=== PATIENT | female | born 1975 | race Two or more races ===

== ENCOUNTER 2022-06-21 18:33 | Emergency (ER) | payer OTHER, SELFPAY ==
--- NOTE | ~2022-06-21 | XR_ITS ---
EXAMINATION: XR LUMBOSACRAL SPINE CLINICAL INFORMATION: Pain COMPARISON: None TECHNIQUE: Three views of the lumbosacral spine. FINDINGS: 5 lumbar type vertebral bodies.. Vertebral body heights are preserved. There is mild disc space narrowing most significant at L5/S1. XR/XR lumbar spine 2-3V IMPRESSION: Mild degenerative changes of the lumbar spine.
[2022-06-21 18:44] VITALS: BP 154/78; PULSE 56; RESP 16; TEMP 36.8; O2SAT 97; BMI 27.4
--- NOTE | 2022-06-21 19:47 | ED_ITS ---
HPI - Female Genitourinary General Chief complaint: Urogenital-Female Stated complaint: back pain Time Seen by Provider: 06/21/22 19:47 Source: patient Mode of arrival: ambulatory Limitations: no limitations History of Present Illness HPI Narrative: This is a 46 years old female presented to the emergency department with chief complaint of lower back pain she is ambulatory to the emergency department denies any radiation of the pain into the lower extremity, denies numbness in weakness to the lower extremity no urine incontinence no fever Pertinent past history: pyelonephritis Onset (ago): day(s) (1) Severity: moderate Severity scale (1-10): 5 Quality of pain: dull Consistency: constant Exacerbating factors: none Relieving factors: none Associated symptoms: denies other symptoms Related Data Previous Rx's Medication Instructions Recorded oxycodone 5 mg capsule 5 mg PO Q8H PRN pain #12 caps 06/21/22 Allergies Allergy/AdvReac Type Severity Reaction Status Date / Time No Known Allergies Allergy Verified 06/21/22 18:44 Review of Systems Constitutional: Constitutional: Reports no additional constitutional complaints Eyes: Eyes: Reports no additional eye complaints Respiratory: Respiratory: Reports no additional respiratory complaints Musculoskeletal: Musculoskeletal: Reports as per HPI [facility] Past Medical History [facility] Narrative: pyelonephritis Social History Social History Advance Directives: No Advance Directives Information Provided: No Physical Exam Vital Signs: Vital Signs: Last Vital Signs Temp 96.3 F L 06/21/22 21:14 Pulse 56 06/21/22 21:14 Resp 16 06/21/22 21:14 BP 162/92 H 06/21/22 21:14 Pulse Ox 95 06/21/22 21:14 O2 Del Method 06/21/22 21:14 BMI result Body Mass Index 27.4 Const: General: cooperative, comfortable, no acute distress, well developed, alert and awake Nutritional Appearance: average body habitus and well nourished Orientation/consciousness: patient oriented x3 Limitations: no limitations HEENT: Head: Yes normal to inspection General nose exam: Normal external nose present Face and sinus: Yes normal facial exam Mouth: Normal oral and palatal mucosa present Throat: Yes posterior oropharynx normal Neck: Neck: Yes normal visual inspection, Yes full ROM and Yes no lymphadenopathy Chest: Chest palpation & inspection: normal inspection of the chest Resp: Effort & Inspection: normal respiratory effort Auscultation: clear to auscultation bilaterally Cardio: Jugular venous distension: no JVD Rate: regular rate Rhythm: regular rhythm GI: Inspection: Yes normal to inspection Palpation (GI): Soft to palpation, not firm and nontender Neuro: General: patient oriented x3 Cranial nerves: Yes CN's II-XII intact bilaterally Gait exam (Neuro): Normal gait present Motor exam (neuro): 5/5 motor strength present throughout Course Reevaluation(s) Reevaluation #1: feels better will d/c home Time: 21:21 Medications Administered Discontinued Medications Generic Name Dose Route Start Last Admin Trade Name Freq PRN Reason Stop Dose Admin Oxycodone HCl 5 mg 06/21/22 20:07 06/21/22 20:13 Oxycodone Hcl Immed Release 5 Mg Tablet PO 06/21/22 20:08 5 mg ONCE ONE Administration Medical Decision Making Medical Decision Making MDM Narrative: Presented with lower back pain differential diagnosis of pyelonephritis/back strain Differential Diagnosis Differential Diagnoses: The differential diagnosis associated with the presentation includes Pyelo/back strain /DJD Admission/Observation Consideration of admission/observation: Escalation of care including admission/observation considered Lab Data MDM Lab Attestation statement: I reviewed the patient's lab results. Labs: Lab Results 06/21/22 Range/Units 19:43 Urine Color Yellow Urine Appearance Clear Urine pH 5.5 (5.0-9.0) Ur Specific [place] 1.025 (1.005-1.025) Urine Protein Negative (Neg-Trace) mg/dL Urine Glucose (UA) Negative (Negative) mg/dL Urine Ketones Negative (Negative) mg/dL Urine Blood Negative (Negative) Urine Nitrite Negative (Negative) Ur Leukocyte Esterase Trace H (Negative) Urine RBC 0-2 (0-2) /HPF Urine WBC 0-5 (0-5) /HPF Ur Squamous Epith Cells 3-5 (0-2) /HPF Urine Bacteria None Seen (None Seen) Hyaline Casts 0-2 (0-2) /LPF Independent Interpretation I performed an independent interpretation of an: Plain X-Ray Interpretation: negative Radiology Impression Radiologist Impression: CLINICAL INFORMATION: Pain COMPARISON: None TECHNIQUE: Three views of the lumbosacral spine. FINDINGS: 5 lumbar type vertebral bodies.. Vertebral body heights are preserved. There is mild disc space narrowing most significant at L5/S1. XR/XR lumbar spine 2-3V IMPRESSION: Mild degenerative changes of the lumbar spine. ? Dictated By: Sachi Garnica MD Signed By: <Electronically signed by Sachi Garnica MD in OV> 06/21/22 2100 Discharge Plan Discharge Clinical Impression: Back pain Patient Disposition: Home, Self-Care Instructions: Acute Low Back Pain (ED) Additional Instructions: follow up with PCP return if worse Prescriptions: New oxycodone 5 mg capsule 5 mg PO Q8H PRN (Reason: pain) Qty: 12 0RF Rx Instructions: Partial Fill upon patient request. Referrals: Physician,Unknown J [Primary Care Provider] - 3 days Stand Alone Forms: Work/School Release Interventions: ED Discharge Assessment Last Done: 06/21/22 21:54 Discharge Date/Time: 06/21/22 21:56
[2022-06-21 20:00] LABS: Appearance Urine Clear; Color Urine Yellow; Glucose Urine UA Negative (Negative); Leukocyte Esterase Urine Trace (Negative); Nitrite Urine Negative (Negative); PH 5.5 (5.0-9.0); Specific Gravity - Urine 1.025 (1.005-1.025); UMIC TRIGGER UACC YES; Urine Blood Negative (Negative); Urine Ketones Negative (Negative); Urine Protein Negative (Neg-Trace)
[2022-06-21] MEDS: oxyCODONE HCl Immed Release 5 MG TABLET PO (20:13)
[2022-06-21 20:16] LABS: Bacteria Urine None Seen (None Seen); Hyaline Casts Urine 0-2 /LPF (0-2); RBC Urine 0-2 /HPF (0-2); WBC Urine 0-5 /HPF (0-5)
[2022-06-21 21:14] VITALS: BP 162/92; PULSE 56; RESP 16; TEMP 35.7; O2SAT 95
== END 2022-06-21 21:56 | disposition home or self-care (01) ==
PROVIDERS: Emergency Provider Emergency Medicine
DX: M54.50 Low back pain, unspecified (principal)
CPT/HCPCS: 72100; 81001; 81003; 99283

== ENCOUNTER 2025-04-09 07:53 | Outpatient (AMB) | payer OTHER, SELFPAY ==
--- OUTSIDE RECORDS SUMMARY | 2023-12-07 07:00 | XMS_ITS ---
Author Organization [facility] [address] Address [address] [place] [address] Care Team Providers Care Multimedia Manager Name Role Phone JAROCHO DE LEON Unavailable CAL CASTANON Unavailable [phone] REASON FOR VISIT Pt presents for Tirzepatide inj 2.5mg, tolerated well. Medications Medication SIG (Take, Route, Frequency, Duration) Notes Start Date End Date Status Phentermine HCl 30 MG Capsule 1 capsule Orally Once a day; Duration: 30 days 12/31/2022 Not-Takin g Saxenda 18 MG/3ML Solution Pen-injector Week 1: 0.6mg daily, week 2: 1.2mg daily, week 3: 1.8mg daily, week 4: 2.4mg daily, week 5: 3mg daily Subcutaneous daily; Duration: 30 days 03/13/2023 Not-Taking Ondansetron HCl 4 MG Tablet 1 tablet as needed for nausea Orally Once a day; Duration: 30 days 11/26/2023 Active Insulin Pen Needle 32G X 6 MM Miscellaneous use daily with saxenda; Duration: 30 days 03/13/2023 Not-Taking Zepbound 2.5 MG/0.5ML Solution Auto-injector inject 2.5mg Subcutaneous once weekly; Duration: 30 days 11/26/2023 Active Albuterol Sulfate 108 (90 Base) MCG/ACT Aerosol Powder Breath Activated 1 puff as needed Inhalation every 4 hrs PRN Active Levothyroxine Sodium 150 MCG Tablet 1 tablet in the morning on an empty stomach Orally Once a day Active Nortriptyline HCl PRN Ac tive Gabapentin 300 MG Capsule 1 capsule Oral ly Once a day PRN Active Encounters Encounter Location Date Provider Diagnosis [facility] [address] [place] [address] 12/07/2023 CAL CASTANON Plan Of Treatment No Information Medications Administered Medication Instructions Date of Administration Dosage Notes Tirzepatide 12/07/2023 2.5 mg Progress Notes * Paulette EPSTEINhDOB:[birth year] (49 yo F)Acc No.[id number]:12/07/2023 Patient: Seema Knox Provider: Eric Castanon MD :1975 A ge:48 Y S ex:Female Date:12/07/2023 Address:[address] [place] [address] Subjective: * Chief Complaints: * P t presents for Tirzepatide inj 2.5mg, tolerated well. * Medications: T akingNortriptyline HCl , Notes to Pharmacist: PRNGabapentin 300 MG Capsule 1 capsule Orally Once a day , Notes to Pharmacist: PRNAlbuterol Sulfate 108 (90 Base) MCG/ACT Aerosol Powder Breath Activated 1 puff as needed Inhalation every 4 hrs , Notes to Pharmacist: PRNLevothyroxine Sodium 150 MCG Tablet 1 tablet in the morning on an empty stomach Orally Once a day Zepbound 2.5 MG/0.5ML Solution Auto-injector inject 2.5mg Subcutaneous once weekly Ondansetron HCl 4 MG Tablet 1 tablet as needed for nausea Orally Once a day Taking Nortriptyline HCl , Notes to Pharmacist: PRNTaking Gabapentin 300 MG Capsule 1 capsule Orally Once a day , Notes to Pharmacist: PRNTaking Albuterol Sulfate 108 (90 Base) MCG/ACT Aerosol Powder Breath Activated 1 puff as needed Inhalation every 4 hrs , Notes to Pharmacist: PRNTaking Levothyroxine Sodium 150 MCG Tablet 1 tablet in the morning on an empty stomach Orally Once a day Taking Zepbound 2.5 MG/0.5ML Solution Auto-injector inject 2.5mg Subcutaneous once weekly Taking Ondansetron HCl 4 MG Tablet 1 tablet as needed for nausea Orally Once a day Not-TakingPhentermine HCl 30 MG Capsule 1 capsule Orally Once a day Saxenda 18 MG/3ML Solution Pen-injector Week 1: 0.6mg daily, week 2: 1.2mg daily, week 3: 1.8mg daily, week 4: 2.4mg daily, week 5: 3mg daily Subcutaneous daily Insulin Pen Needle 32G X 6 MM Miscellaneous use daily with saxenda Not-Taking Phentermine HCl 30 MG Capsule 1 capsule Orally Once a day Not-Taking Saxenda 18 MG/3ML Solution Pen-injector Week 1: 0.6mg daily, week 2: 1.2mg daily, week 3: 1.8mg daily, week 4: 2.4mg daily, week 5: 3mg daily Subcutaneous daily Not-Taking Insulin Pen Needle 32G X 6 MM Miscellaneous use daily with saxenda Plan: * Therapeutic Injections: Tirzepatide : 2.5 mg (Route: Subcutaneous) given by ANAY MOON on subcutaneus * Electronic signature of SAADIA CASTANON MD on 04/09/2025 at 07:55 AM EST Sign off status: Pending * Provider: Eric Castanon MD Date: 0 12/07/2023 Generated for Jose Alejandro anaya/Perez/Kaitlin on: 1 06/09/2024 07:55 AM EST
--- OUTSIDE RECORDS SUMMARY | 2023-12-21 04:45 | XMS_ITS ---
Author Organization [facility] [address] Address [address] [place] [address] Care Team Providers Care Detasseler Name Role Phone JAROCHO DE LEON Unavailable AMALIA DELGADO Unavailable [phone] Medications Medication SIG (Take, Route, Frequency, Duration) Notes Start Date End Date Status Insulin Pen Needle 32G X 6 MM Miscellaneous use daily with saxenda; Duration: 30 days 03/13/2023 Not-Taking Zepbound 2.5 MG/0.5ML Solution Auto-injector inject 2.5mg Subcutaneous once weekly; Duration: 30 days 11/26/2023 Active Levothyroxine Sodium 150 MCG Tablet 1 tablet in the morning on an empty stomach Orally Once a day Active Phentermine HCl 30 MG Capsule 1 capsule [...] a day; Duration: 30 days 11/26/2023 Active Nortriptyline HCl PRN Ac tive Gabapentin 300 MG Capsule 1 capsule Oral ly Once a day PRN Active Albuterol Sulfate 108 (90 Base) MCG/ACT Aerosol Powder Breath Activated 1 puff as needed Inhalation every 4 hrs PRN Active Problems Problem Type SNOMED Code ICD Code Onset Dates Problem Status W/U Status Risk Notes Problem Obesity (544681086) Obesity (BMI 30-39.9) (E66.9) Active confirmed Encounters Encounter Location Date Provider Diagnosis [facility] [address] [place] [address] 12/21/2023 AMALIA DELGADO Body mass index [BMI ] 38.0-38.9, adult Z68.38 ; Obesity (BMI 30-39.9) E66.9 ; Dietary counseling and surveillance Z71.3 and Hyperlipemia, mixed E78.2 Assessments Encounter Date Diagnosis (ICD Code) Assessment Notes Treatment Notes Treatment Clinical Notes Section Notes 12/21/2023 Body mass index [BMI] 38.0-38.9, adult (ICD-10 - Z68.38) ITotal time spent today was 30 minutes of which greater than 50% was spent on coordinating and counseling Patient has been found to be obese with a BMI of (30). Patient has class (1) obesity. We are a board certified obesity and weight management practice Patient has trialed behavioral modification, dietary restrictions and exercise for a minimum of 6 months The most recent [place] [employer]ocrin[employer] and [place] [employer] guidelines recommend patients who have overweight BMI or obesity BMI, who also have metabolic syndrome, prediabetes, HLD, and other comorbidities or at risk of developing type 2 diabetes should aim for a weight loss goal of at least 10% of the baseline body weight Patient counseled regarding effects of GLP/GIP-1 agonists, and other FDA approved wgt loss meds with regards to a multifactorial approach of weight loss as mentioned above and not solely appetite suppression. We have discussed the mechanism of GLP-1's/GIP, dual incretins, appetitite suppressants I think this would be fantastic option for her given her metabolic workup and body composition We have discussed the risks and benefits and side effects including/and not limited to Sarcopenia, intestinal obstruction, constipation, nausea, lethargy, headache Discussed importance of protein consumption for muscle maintenance as well as strength and resistance training ,probiotics, B12 complex biotin , iron and other nutrients, To help avoid telogen effluvium We have discussed the lifelong requirement of nutritional supplementation And adherence to an exercise regimen as well as importance of follow-up We did discuss the neurohormonal changes that are occurring with these medications and Need for long-term Continued usage The patient understands and agrees There is no history of medullary thyroid cancer or multiple endocrine neoplasia There is also no history of cardiovascular disease, hypertension, palpitations, or arrhythmias In the setting of potential stimulant/amphetami ne use such as phentermine We have also discussed risks and benefits, and the use of compounded medications to help offset the national shortages as well as financial implications vs trade name drugs Patient was reassured and welcomed to the practice. We discussed that we stress a hollistic medical approach with emphasis on lifestyle modification. Patient was informed that a healthy lifestyle with exercise and good eating habits can help reduce his risk of medical complications. He is explained that obesity increases his risk of diabetes, cardiovascular disease, or organ damage. We spent a lot of time discussing the relationship between food, exercise, sleep, mental health and obesity. Patient was counseled on the importance EATING local, organic food when possible. Patient was educated on clean 15 and dirty dozen. I provided information about reading books called The Food Rules by Roger Pringle and Eat Fat Get Lean by Dr Yusef Tom. Self education is important in the journey for weight management. Encourage good sleep hygiene Optimize sleep/wake cycles 6-8 hours nightly Keep lights on his stimulus during the day Darkroom and minimize nighttime interruptions Continue melatonin, other sleep aid medications Patient was offered diagnostic testing. We want to measure visceral adiposity, advanced body composition, adverse lipids, fatty acid balance, risk for heart disease and atherosclerosis, markers of inflammation and genetic susceptibility. Patient was counseled on weight management and was advised to lose weight using A. Meal Replacement Products We discussed the lifelong requirement of nutritional supplementation and adherence to an exercise regimen as well as importance of dietary follow-up Patient was educated on the replacement products called optifast. This is a good way of taking fixed amount of calories. It has been shown in studies to be ineffective weight management tool. We also recommend maintaining adequate protein intake and muscle composition, 1.5mg/kg This however has to be coupled with lifestyle intervention as well as laboratory data and EKG monitoring. It is impossible to know how a person will tolerate complete meal replacement. The side effects of meal replacement and weight loss could include syncopal attacks, dizziness, gallstones, potential cholecystectomy, possible heart attack and even . The benefits of meal replacement would be potential weight loss but no guarantees can be made. Meal replacement products are not covered by insurance. Once the patient has bought these products we cannot return them B. Lifestyle management which includes several strategies as below 1. Eat a low carbohydrate good fat good protein diet. Eliminate refined carbohydrates from the diet. Continue blood sugar and sugared beverages. Eat local organic when possible. Cook your own meals. Read food labels. None about healthy snacks. Portion control and food with low glycemic index 2. Exercise regularly. Try to get at least 6000 steps a day. Use a predominant to track activity level. Consider using apps like Socialcam, [employer], lose it, stick as needed for self-monitoring and weight management. Consider group exercises. Consider hiring a personal lines appraiser. Regular exercise is blackman to sustainable health and prevents as a buffer against weight regain 3. Sleep is most important for healing. Tried to sleep at least 8 hours a night. A good quality sleep needs a sleep ritual with ideal room temperature of around 68. It might help to take a shower and have no electronics in the room and sleep in a very dark room without artificial light. Start her sleep routine and get up early in the morning and go to bed on time 4. Make a social connection. Surround yourself with positive people with positive energy. Connect with friends and family. 5. Get into the habit of meditating and mindfulness while doing everything. 6. Go outside and connect with nature. C. Prescription medications Patient was educated on the use of prescription medications for medical weight loss. This is a growing list and includes phentermine, Topamax,Qsymia, contrave, belviq and saxenda. All prescription medications could have side effects including but not limited to kidney stones, seizure disorder cardiac arrhythmias heart attack pancreatitis etc. etc.. Patient was encouraged to read the prescription insert and have coaching with their pharmacist and make an informed decision about taking medication and know that these medications are being prescribed with good intentions and we do not know how a patient would react to her medication. Sudden medications are FDA approved for weight loss and there is also off label use depending on patient's inability to afford medications in an attempt to lose weight D. Behavioral counseling was done to establish a relationship between food and an mood. Patient was provided information about local counseling and psychiatry and Dr Blue at [facility]. We would like to cover regular topics and build on low glycemic eating exercise mindful eating, using yoga and meditation along with deep breathing and connecting with friends and family. E. MASS PAT reviewed, Patient's current medications were reviewed and opinion was given on medication that can cause weight gain and can be substituted F. Patient was assessed for risk with obesity including and not limiting to atherosclerosis heart disease stroke kidney disease, restrictive lung disease, irritable bowel syndrome and overall mortality. Risk of developing prediabetes diabetes and metabolic syndrome was discussed G. Therapeutic plan: We have decided to make therapeutic plan which would include choosing wisely on calories restricting portion getting active, tracking weight, getting good quality sleep and working on time management H. Patient will follow up in (4) weeks for weight management Of note, some information is being carried forward from prior records for informational purposes only and is being cited so that efficiency, safety and quality of the patient's care is not compromised This note was prepared using voice recognition software and direct typing Please excuse inadvertent pouch maker or typing errors, or uncorrected word substitutions Although every attempt has been made by the provider to proofread this document, occasional misspellings and typographical errors may still be present Due to the previous pandemic, and the use of personal protective equipment (PPE) This may decrease voice recognition accuracy Inadvertent pouch maker errors may occur 12/21/2023 Obesity (BMI 30-39.9) (ICD-10 - E66.9) ITotal time spent today was 30 minutes of which greater than 50% was spent on coordinating and counseling Patient has been found to be obese with a BMI of (30). Patient has class (1) obesity. We are a board certified obesity and weight management practice Patient has trialed behavioral modification, dietary restrictions and exercise for a minimum of 6 months The most recent [place] [employer] clinical [employer]ocrinologists and [place] [employer] guidelines recommend patients who have overweight BMI or obesity BMI, who also have metabolic syndrome, prediabetes, HLD, and other comorbidities or at risk of developing type 2 diabetes should aim for a weight loss goal of at least 10% of the baseline body weight Patient counseled regarding effects of GLP/GIP-1 agonists, and other FDA approved wgt loss meds with regards to a multifactorial approach of weight loss as mentioned above and not solely appetite suppression. We have discussed the mechanism of GLP-1's/GIP, dual incretins, appetitite suppressants I think this would be fantastic option for her given her metabolic workup and body composition We have discussed the risks and benefits and side effects including/and not limited to Sarcopenia, intestinal obstruction, constipation, nausea, lethargy, headache Discussed importance of protein consumption for muscle maintenance as well as strength and resistance training ,probiotics, B12 complex biotin , iron and other nutrients, To help avoid telogen effluvium We have discussed the lifelong requirement of nutritional supplementation And adherence to an exercise regimen as well as importance of follow-up We did discuss the neurohormonal changes that are occurring with these medications and Need for long-term Continued usage The patient understands and agrees There is no history of medullary thyroid cancer or multiple endocrine neoplasia There is also no history of cardiovascular disease, hypertension, palpitations, or arrhythmias In the setting of potential stimulant/amphetami ne use such as phentermine We have also discussed risks and benefits, and the use of compounded medications to help offset the national shortages as well as financial implications vs trade name drugs Patient was reassured and welcomed to the practice. We discussed that we stress a hollistic medical approach with emphasis on lifestyle modification. Patient was informed that a healthy lifestyle with exercise and good eating habits can help reduce his risk of medical complications. He is explained that obesity increases his risk of diabetes, cardiovascular disease, or organ damage. We spent a lot of time discussing the relationship between food, exercise, sleep, mental health and obesity. Patient was counseled on the importance EATING local, organic food when possible. Patient was educated on clean 15 and dirty dozen. I provided information about reading books called The Food Rules by Roger Pringle and Eat Fat Get Lean by Dr Yusef Tom. Self education is important in the journey for weight management. Encourage good sleep hygiene Optimize sleep/wake cycles 6-8 hours nightly Keep lights on his stimulus during the day Darkroom and minimize nighttime interruptions Continue melatonin, other sleep aid medications Patient was offered diagnostic testing. We want to measure visceral adiposity, advanced body composition, adverse lipids, fatty acid balance, risk for heart disease and atherosclerosis, markers of inflammation and genetic susceptibility. Patient was counseled on weight management and was advised to lose weight using A. Meal Replacement Products We discussed the lifelong requirement of nutritional supplementation and adherence to an exercise regimen as well as importance of dietary follow-up Patient was educated on the replacement products called optifast. This is a good way of taking fixed amount of calories. It has been shown in studies to be ineffective weight management tool. We also recommend maintaining adequate protein intake and muscle composition, 1.5mg/kg This however has to be coupled with lifestyle intervention as well as laboratory data and EKG monitoring. It is impossible to know how a person will tolerate complete meal replacement. The side effects of meal replacement and weight loss could include syncopal attacks, dizziness, gallstones, potential cholecystectomy, possible heart attack and even . The benefits of meal replacement would be potential weight loss but no guarantees can be made. Meal replacement products are not covered by insurance. Once the patient has bought these products we cannot return them B. Lifestyle management which includes several strategies as below 1. Eat a low carbohydrate good fat good protein diet. Eliminate refined carbohydrates from the diet. Continue blood sugar and sugared beverages. Eat local organic when possible. Cook your own meals. Read food labels. None about healthy snacks. Portion control and food with low glycemic index 2. Exercise regularly. Try to get at least 6000 steps a day. Use a predominant to track activity level. Consider using apps like Socialcam, [employer], lose it, stick as needed for self-monitoring and weight management. Consider group exercises. Consider hiring a personal lines appraiser. Regular exercise is blackman to sustainable health and prevents as a buffer against weight regain 3. Sleep is most important for healing. Tried to sleep at least 8 hours a night. A good quality sleep needs a sleep ritual with ideal room temperature of around 68. It might help to take a shower and have no electronics in the room and sleep in a very dark room without artificial light. Start her sleep routine and get up early in the morning and go to bed on time 4. Make a social connection. Surround yourself with positive people with positive energy. Connect with friends and family. 5. Get into the habit of meditating and mindfulness while doing everything. 6. Go outside and connect with nature. C. Prescription medications Patient was educated on the use of prescription medications for medical weight loss. This is a growing list and includes phentermine, Topamax,Qsymia, contrave, belviq and saxenda. All prescription medications could have side effects including but not limited to kidney stones, seizure disorder cardiac arrhythmias heart attack pancreatitis etc. etc.. Patient was encouraged to read the prescription insert and have coaching with their pharmacist and make an informed decision about taking medication and know that these medications are being prescribed with good intentions and we do not know how a patient would react to her medication. Sudden medications are FDA approved for weight loss and there is also off label use depending on patient's inability to afford medications in an attempt to lose weight D. Behavioral counseling was done to establish a relationship between food and an mood. Patient was provided information about local counseling and psychiatry and Dr Blue at [facility] [employer] [facility] [employer] [facility]. We would like to cover regular topics and build on low glycemic eating exercise mindful eating, using yoga and meditation along with deep breathing and connecting with friends and family. E. MASS PAT reviewed, Patient's current medications were reviewed and opinion was given on medication that can cause weight gain and can be substituted F. Patient was assessed for risk with obesity including and not limiting to atherosclerosis heart disease stroke kidney disease, restrictive lung disease, irritable bowel syndrome and overall mortality. Risk of developing prediabetes diabetes and metabolic syndrome was discussed G. Therapeutic plan: We have decided to make therapeutic plan which would include choosing wisely on calories restricting portion getting active, tracking weight, getting good quality sleep and working on time management H. Patient will follow up in (4) weeks for weight management Of note, some information is being carried forward from prior records for informational purposes only and is being cited so that efficiency, safety and quality of the patient's care is not compromised This note was prepared using voice recognition software and direct typing Please excuse inadvertent pouch maker or typing errors, or uncorrected word substitutions Although every attempt has been made by the provider to proofread this document, occasional misspellings and typographical errors may still be present Due to the previous pandemic, and the use of personal protective equipment (PPE) This may decrease voice recognition accuracy Inadvertent pouch maker errors may occur 12/21/2023 Dietary counseling and surveillance (ICD-10 - Z71.3) ITotal time spent today was 30 minutes of which greater than 50% was spent on coordinating and counseling Patient has been found to be obese with a BMI of (30). Patient has class (1) obesity. We are a board certified obesity and weight management practice Patient has trialed behavioral modification, dietary restrictions and exercise for a minimum of 6 months The most recent [place] [employer]ocrinologists and [place] [employer] guidelines recommend patients who have overweight BMI or obesity BMI, who also have metabolic syndrome, prediabetes, HLD, and other comorbidities or at risk of developing type 2 diabetes should aim for a weight loss goal of at least 10% of the baseline body weight Patient counseled regarding effects of GLP/GIP-1 agonists, and other FDA approved wgt loss meds with regards to a multifactorial approach of weight loss as mentioned above and not solely appetite suppression. We have discussed the mechanism of GLP-1's/GIP, dual incretins, appetitite suppressants I think this would be fantastic option for her given her metabolic workup and body composition We have discussed the risks and benefits and side effects including/and not limited to Sarcopenia, intestinal obstruction, constipation, nausea, lethargy, headache Discussed importance of protein consumption for muscle maintenance as well as strength and resistance training ,probiotics, B12 complex biotin , iron and other nutrients, To help avoid telogen effluvium We have discussed the lifelong requirement of nutritional supplementation And adherence to an exercise regimen as well as importance of follow-up We did discuss the neurohormonal changes that are occurring with these medications and Need for long-term Continued usage The patient understands and agrees There is no history of medullary thyroid cancer or multiple endocrine neoplasia There is also no history of cardiovascular disease, hypertension, palpitations, or arrhythmias In the setting of potential stimulant/amphetami ne use such as phentermine We have also discussed risks and benefits, and the use of compounded medications to help offset the national shortages as well as financial implications vs trade name drugs Patient was reassured and welcomed to the practice. We discussed that we stress a hollistic medical approach with emphasis on lifestyle modification. Patient was informed that a healthy lifestyle with exercise and good eating habits can help reduce his risk of medical complications. He is explained that obesity increases his risk of diabetes, cardiovascular disease, or organ damage. We spent a lot of time discussing the relationship between food, exercise, sleep, mental health and obesity. Patient was counseled on the importance EATING local, organic food when possible. Patient was educated on clean 15 and dirty dozen. I provided information about reading books called The Food Rules by Roger Pringle and Eat Fat Get Lean by Dr Yusef Tom. Self education is important in the journey for weight management. Encourage good sleep hygiene Optimize sleep/wake cycles 6-8 hours nightly Keep lights on his stimulus during the day Darkroom and minimize nighttime interruptions Continue melatonin, other sleep aid medications Patient was offered diagnostic testing. We want to measure visceral adiposity, advanced body composition, adverse lipids, fatty acid balance, risk for heart disease and atherosclerosis, markers of inflammation and genetic susceptibility. Patient was counseled on weight management and was advised to lose weight using A. Meal Replacement Products We discussed the lifelong requirement of nutritional supplementation and adherence to an exercise regimen as well as importance of dietary follow-up Patient was educated on the replacement products called optifast. This is a good way of taking fixed amount of calories. It has been shown in studies to be ineffective weight management tool. We also recommend maintaining adequate protein intake and muscle composition, 1.5mg/kg This however has to be coupled with lifestyle intervention as well as laboratory data and EKG monitoring. It is impossible to know how a person will tolerate complete meal replacement. The side effects of meal replacement and weight loss could include syncopal attacks, dizziness, gallstones, potential cholecystectomy, possible heart attack and even . The benefits of meal replacement would be potential weight loss but no guarantees can be made. Meal replacement products are not covered by insurance. Once the patient has bought these products we cannot return them B. Lifestyle management which includes several strategies as below 1. Eat a low carbohydrate good fat good protein diet. Eliminate refined carbohydrates from the diet. Continue blood sugar and sugared beverages. Eat local organic when possible. Cook your own meals. Read food labels. None about healthy snacks. Portion control and food with low glycemic index 2. Exercise regularly. Try to get at least 6000 steps a day. Use a predominant to track activity level. Consider using apps like Socialcam, myfitnesspal, lose it, stick as needed for self-monitoring and weight management. Consider group exercises. Consider hiring a personal lines appraiser. Regular exercise is blackman to sustainable health and prevents as a buffer against weight regain 3. Sleep is most important for healing. Tried to sleep at least 8 hours a night. A good quality sleep needs a sleep ritual with ideal room temperature of around 68. It might help to take a shower and have no electronics in the room and sleep in a very dark room without artificial light. Start her sleep routine and get up early in the morning and go to bed on time 4. Make a social connection. Surround yourself with positive people with positive energy. Connect with friends and family. 5. Get into the habit of meditating and mindfulness while doing everything. 6. Go outside and connect with nature. C. Prescription medications Patient was educated on the use of prescription medications for medical weight loss. This is a growing list and includes phentermine, Topamax,Qsymia, contrave, belviq and saxenda. All prescription medications could have side effects including but not limited to kidney stones, seizure disorder cardiac arrhythmias heart attack pancreatitis etc. etc.. Patient was encouraged to read the prescription insert and have coaching with their pharmacist and make an informed decision about taking medication and know that these medications are being prescribed with good intentions and we do not know how a patient would react to her medication. Sudden medications are FDA approved for weight loss and there is also off label use depending on patient's inability to afford medications in an attempt to lose weight D. Behavioral counseling was done to establish a relationship between food and an mood. Patient was provided information about local counseling and psychiatry and Dr Blue at [facility]. We would like to cover regular topics and build on low glycemic eating exercise mindful eating, using yoga and meditation along with deep breathing and connecting with friends and family. E. MASS PAT reviewed, Patient's current medications were reviewed and opinion was given on medication that can cause weight gain and can be substituted F. Patient was assessed for risk with obesity including and not limiting to atherosclerosis heart disease stroke kidney disease, restrictive lung disease, irritable bowel syndrome and overall mortality. Risk of developing prediabetes diabetes and metabolic syndrome was discussed G. Therapeutic plan: We have decided to make therapeutic plan which would include choosing wisely on calories restricting portion getting active, tracking weight, getting good quality sleep and working on time management H. Patient will follow up in (4) weeks for weight management Of note, some information is being carried forward from prior records for informational purposes only and is being cited so that efficiency, safety and quality of the patient's care is not compromised This note was prepared using voice recognition software and direct typing Please excuse inadvertent pouch maker or typing errors, or uncorrected word substitutions Although every attempt has been made by the provider to proofread this document, occasional misspellings and typographical errors may still be present Due to the previous pandemic, and the use of personal protective equipment (PPE) This may decrease voice recognition accuracy Inadvertent pouch maker errors may occur 12/21/2023 Hyperlipemia, mixed (ICD-10 - E78.2) ITotal time spent today was 30 minutes of which greater than 50% was spent on coordinating and counseling Patient has been found to be obese with a BMI of (30). Patient has class (1) obesity. We are a board certified obesity and weight management practice Patient has trialed behavioral modification, dietary restrictions and exercise for a minimum of 6 months The most recent [place] [employer] of clinical endocrinologists and [place] [employer] guidelines recommend patients who have overweight BMI or obesity BMI, who also have metabolic syndrome, prediabetes, HLD, and other comorbidities or at risk of developing type 2 diabetes should aim for a weight loss goal of at least 10% of the baseline body weight Patient counseled regarding effects of GLP/GIP-1 agonists, and other FDA approved wgt loss meds with regards to a multifactorial approach of weight loss as mentioned above and not solely appetite suppression. We have discussed the mechanism of GLP-1's/GIP, dual incretins, appetitite suppressants I think this would be fantastic option for her given her metabolic workup and body composition We have discussed the risks and benefits and side effects including/and not limited to Sarcopenia, intestinal obstruction, constipation, nausea, lethargy, headache Discussed importance of protein consumption for muscle maintenance as well as strength and resistance training ,probiotics, B12 complex biotin , iron and other nutrients, To help avoid telogen effluvium We have discussed the lifelong requirement of nutritional supplementation And adherence to an exercise regimen as well as importance of follow-up We did discuss the neurohormonal changes that are occurring with these medications and Need for long-term Continued usage The patient understands and agrees There is no history of medullary thyroid cancer or multiple endocrine neoplasia There is also no history of cardiovascular disease, hypertension, palpitations, or arrhythmias In the setting of potential stimulant/amphetami ne use such as phentermine We have also discussed risks and benefits, and the use of compounded medications to help offset the national shortages as well as financial implications vs trade name drugs Patient was reassured and welcomed to the practice. We discussed that we stress a hollistic medical approach with emphasis on lifestyle modification. Patient was informed that a healthy lifestyle with exercise and good eating habits can help reduce his risk of medical complications. He is explained that obesity increases his risk of diabetes, cardiovascular disease, or organ damage. We spent a lot of time discussing the relationship between food, exercise, sleep, mental health and obesity. Patient was counseled on the importance EATING local, organic food when possible. Patient was educated on clean 15 and dirty dozen. I provided information about reading books called The Food Rules by Roger Pringle and Eat Fat Get Lean by Dr Yusef Tom. Self education is important in the journey for weight management. Encourage good sleep hygiene Optimize sleep/wake cycles 6-8 hours nightly Keep lights on his stimulus during the day Darkroom and minimize nighttime interruptions Continue melatonin, other sleep aid medications Patient was offered diagnostic testing. We want to measure visceral adiposity, advanced body composition, adverse lipids, fatty acid balance, risk for heart disease and atherosclerosis, markers of inflammation and genetic susceptibility. Patient was counseled on weight management and was advised to lose weight using A. Meal Replacement Products We discussed the lifelong requirement of nutritional supplementation and adherence to an exercise regimen as well as importance of dietary follow-up Patient was educated on the replacement products called optifast. This is a good way of taking fixed amount of calories. It has been shown in studies to be ineffective weight management tool. We also recommend maintaining adequate protein intake and muscle composition, 1.5mg/kg This however has to be coupled with lifestyle intervention as well as laboratory data and EKG monitoring. It is impossible to know how a person will tolerate complete meal replacement. The side effects of meal replacement and weight loss could include syncopal attacks, dizziness, gallstones, potential cholecystectomy, possible heart attack and even . The benefits of meal replacement would be potential weight loss but no guarantees can be made. Meal replacement products are not covered by insurance. Once the patient has bought these products we cannot return them B. Lifestyle management which includes several strategies as below 1. Eat a low carbohydrate good fat good protein diet. Eliminate refined carbohydrates from the diet. Continue blood sugar and sugared beverages. Eat local organic when possible. Cook your own meals. Read food labels. None about healthy snacks. Portion control and food with low glycemic index 2. Exercise regularly. Try to get at least 6000 steps a day. Use a predominant to track activity level. Consider using apps like Socialcam, myfitnesspal, lose it, stick as needed for self-monitoring and weight management. Consider group exercises. Consider hiring a personal lines appraiser. Regular exercise is blackman to sustainable health and prevents as a buffer against weight regain 3. Sleep is most important for healing. Tried to sleep at least 8 hours a night. A good quality sleep needs a sleep ritual with ideal room temperature of around 68. It might help to take a shower and have no electronics in the room and sleep in a very dark room without artificial light. Start her sleep routine and get up early in the morning and go to bed on time 4. Make a social connection. Surround yourself with positive people with positive energy. Connect with friends and family. 5. Get into the habit of meditating and mindfulness while doing everything. 6. Go outside and connect with nature. C. Prescription medications Patient was educated on the use of prescription medications for medical weight loss. This is a growing list and includes phentermine, Topamax,Qsymia, contrave, belviq and saxenda. All prescription medications could have side effects including but not limited to kidney stones, seizure disorder cardiac arrhythmias heart attack pancreatitis etc. etc.. Patient was encouraged to read the prescription insert and have coaching with their pharmacist and make an informed decision about taking medication and know that these medications are being prescribed with good intentions and we do not know how a patient would react to her medication. Sudden medications are FDA approved for weight loss and there is also off label use depending on patient's inability to afford medications in an attempt to lose weight D. Behavioral counseling was done to establish a relationship between food and an mood. Patient was provided information about local counseling and psychiatry and Dr Blue at [facility]. We would like to cover regular topics and build on low glycemic eating exercise mindful eating, using yoga and meditation along with deep breathing and connecting with friends and family. E. MASS PAT reviewed, Patient's current medications were reviewed and opinion was given on medication that can cause weight gain and can be substituted F. Patient was assessed for risk with obesity including and not limiting to atherosclerosis heart disease stroke kidney disease, restrictive lung disease, irritable bowel syndrome and overall mortality. Risk of developing prediabetes diabetes and metabolic syndrome was discussed G. Therapeutic plan: We have decided to make therapeutic plan which would include choosing wisely on calories restricting portion getting active, tracking weight, getting good quality sleep and working on time management H. Patient will follow up in (4) weeks for weight management Of note, some information is being carried forward from prior records for informational purposes only and is being cited so that efficiency, safety and quality of the patient's care is not compromised This note was prepared using voice recognition software and direct typing Please excuse inadvertent pouch maker or typing errors, or uncorrected word substitutions Although every attempt has been made by the provider to proofread this document, occasional misspellings and typographical errors may still be present Due to the previous pandemic, and the use of personal protective equipment (PPE) This may decrease voice recognition accuracy Inadvertent pouch maker errors may occur Plan Of Treatment No Information History and Physical Notes * HPI (History of Present Illness) Category Sub-Category Detail Notes Category Not es Constitutional Patient is here today for a weight management f/u visit Patient seen and examined. Full past medical history, social history, family history, allergies and current medications were reviewed and updated. Body composition analysis reviewed today, Including review of body fat, water and skeletal muscle composition Caloric energy expenditure discussed, weight circumference, visceral adiposity we discussed the importance of protein calorie nutrition, maintaning muscle mass, vit b12, biotin, iron while on GLP-1 medications, dual incretins, appetitite suppressants Patient denies any known personal history or family history of medullary thyroid cancer, multiple endocrine neoplasia, intestinal obstruction, pancreatitis or other gastrointestinal issues #Weight Management Needs updated metabolic workup 12/21/2023: Weight lbs, BMI: November 26, 2023, weight 211 pounds, BMI 38 Patient works as Highest weight: lbs Lowest weight: lbs Goal weight: lbs NORA screening/STOP-BANG/[place], * Metabolic workup: 10/2022 Thyroid? No recent screening Diabetes? No recent screening Has not had an echocardiogram recently. Diet: Exercise: Currently steps daily. Non-smoker. ETOH use: #Weight Management 12/21/2023 Examination Category Sub-Category Detail Notes Category Not es General Examination GENERAL APPEARANCE: in no ac [place] distress, well developed, well nourished HEAD: normocephalic, atrau matic EYES: pupils equal, round, reactive to light and accommodation EARS: normal THROAT: clear NECK/THYROID: neck supple, full ra nge of motion, no cervical lymphadenopathy HEART: no murmurs, regular rate and rhythm, S1, S2 normal LUNGS: clear to auscultatio n bilaterally ABDOMEN: normal, bowel sounds present, soft, nontender, nondistended NEUROLOGIC: nonfocal, motor stre ngth normal upper and lower extremities, sensory exam intact SKIN: no suspicious lesion s, warm and dry EXTREMITIES: no clubbing, cyanosi s, or edema ORAL CAVITY: mucosa moist Progress Notes * Philip EPSTEINOB:[birth year] (49 yo F)Acc No.[id number]:12/21/2023 Patient: Seema Knox Provider: Koki DELGADO NP :[id number] A ge:48 Y S ex:Female Date:12/21/2023 Address:[address] [place] [address] Subjective: * Chief Complaints: * HPI: C onstitutional: Patient is here today for a weight management f/u visit Patient seen and examined. Full past medical history, social history, family history, allergies and current medications were reviewed and updated. Body composition analysis reviewed today, Including review of body fat, water and skeletal muscle composition Caloric energy expenditure discussed, weight circumference, visceral adiposity we discussed the importance of protein calorie nutrition, maintaning muscle mass, vit b12, biotin, iron while on GLP-1 medications, dual incretins, appetitite suppressants Patient denies any known personal history or family history of medullary thyroid cancer, multiple endocrine neoplasia, intestinal obstruction, pancreatitis or other gastrointestinal issues #Weight Management Needs updated metabolic workup 12/21/2023: Weight lbs, BMI: November 26, 2023, weight 211 pounds, BMI 38 Patient works as Highest weight: lbs Lowest weight: lbs Goal weight: lbs NORA screening/[facility]/[place], * Metabolic workup: 10/2022 Thyroid? No recent screening Diabetes? No recent screening Has not had an echocardiogram recently. Diet: Exercise: Currently steps daily. Non-smoker. ETOH use: #Weight Management 12/21/2023. * ROS: A ll Other Systems: Review of Systems (ROS) A ll others negative except those mentioned in HPI. * Medications: T akingNortriptyline HCl , Notes [...] 6 MM Miscellaneous use daily with saxenda Objective: * Examination: G eneral Examination: GENERAL APPEARANCE: i n no acute distress, well developed, well nourished. HEAD: n ormocephalic, atraumatic. EYES: p upils equal, round, reactive to light and accommodation. EARS: n ormal. ORAL CAVITY: m [place] moist. THROAT: c lear. NECK/THYROID: n jennifer supple, full range of motion, no cervical lymphadenopathy. SKIN: n o suspicious lesions, warm and dry. HEART: n o murmurs, regular rate and rhythm, S1, S2 normal.? LUNGS: c lear to auscultation bilaterally. ABDOMEN: n ormal, bowel sounds present, soft, nontender, nondistended. EXTREMITIES: n o clubbing, cyanosis, or edema. NEUROLOGIC: n onfocal, motor strength normal upper and lower extremities, sensory exam intact. Assessment: * Assessment: 1. O besity (BMI 30-39.9) - E66.9 (Primary) 2 . B josh mass index [BMI] 38.0-38.9, adult - Z68.38 3 . D ietary counseling and surveillance - Z71.3 ? 4 . H yperlipemia, mixed - E78.2 ITotal time spent today was 30 minutes of which greater than 50% was spent on coordinating and counseling Patient has been found to be obese with a BMI of (30). Patient has class (1) obesity. We are a board certified obesity and weight management practice Patient has trialed behavioral modification, dietary restrictions and exercise for a minimum of 6 months The most recent [place] [employer] of clinical endocrinologists and [place] [employer] guidelines recommend patients who have overweight BMI or obesity BMI, who also have metabolic syndrome, prediabetes, HLD, and other comorbidities or at risk of developing type 2 diabetes should aim for a weight loss goal of at least 10% of the baseline body weight Patient counseled regarding effects of GLP/GIP-1 agonists, and other FDA approved wgt loss meds with regards to a multifactorial approach of weight loss as mentioned above and not solely appetite suppression. We have discussed the mechanism of GLP-1's/GIP, dual incretins, appetitite suppressants I think this would be fantastic option for her given her metabolic workup and body composition We have discussed the risks and benefits and side effects including/and not limited to Sarcopenia, intestinal obstruction, constipation, nausea, lethargy, headache Discussed importance of protein consumption for muscle maintenance as well as strength and resistance training ,probiotics, B12 complex biotin , iron and other nutrients, To help avoid telogen effluvium We have discussed the lifelong requirement of nutritional supplementation And adherence to an exercise regimen as well as importance of follow-up We did discuss the neurohormonal changes that are occurring with these medications and Need for long-term Continued usage The patient understands and agrees There is no history of medullary thyroid cancer or multiple endocrine neoplasia There is also no history of cardiovascular disease, hypertension, palpitations, or arrhythmias In the setting of potential stimulant/amphetamine use such as phentermine We have also discussed risks and benefits, and the use of compounded medications to help offset the national shortages as well as financial implications vs trade name drugs Patient was reassured and welcomed to the practice. We discussed that we stress a hollistic medical approach with emphasis on lifestyle modification. Patient was informed that a healthy lifestyle with exercise and good eating habits can help reduce his risk of medical complications. He is explained that obesity increases his risk of diabetes, cardiovascular disease, or organ damage. We spent a lot of time discussing the relationship between food, exercise, sleep, mental health and obesity. Patient was counseled on the importance EATING local, organic food when possible. Patient was educated on clean 15 and dirty dozen. I provided information about reading books called The Food Rules by Roger Pringle and Eat Fat Get Lean by Dr Yusef Tom. Self education is important in the journey for weight management. Encourage good sleep hygiene Optimize sleep/wake cycles 6-8 hours nightly Keep lights on his stimulus during the day Darkroom and minimize nighttime interruptions Continue melatonin, other sleep aid medications Patient was offered diagnostic testing. We want to measure visceral adiposity, advanced body composition, adverse lipids, fatty acid balance, risk for heart disease and atherosclerosis, markers of inflammation and genetic susceptibility. Patient was counseled on weight management and was advised to lose weight using A. Meal Replacement Products We discussed the lifelong requirement of nutritional supplementation and adherence to an exercise regimen as well as importance of dietary follow-up Patient was educated on the replacement products called optifast. This is a good way of taking fixed amount of calories. It has been shown in studies to be ineffective weight management tool. We also recommend maintaining adequate protein intake and muscle composition, 1.5mg/kg This however has to be coupled with lifestyle intervention as well as laboratory data and EKG monitoring. It is impossible to know how a person will tolerate complete meal replacement. The side effects of meal replacement and weight loss could include syncopal attacks, dizziness, gallstones, potential cholecystectomy, possible heart attack and even . The benefits of meal replacement would be potential weight loss but no guarantees can be made. Meal replacement products are not covered by insurance. Once the patient has bought these products we cannot return them B. Lifestyle management which includes several strategies as below 1. Eat a low carbohydrate good fat good protein diet. Eliminate refined carbohydrates from the diet. Continue blood sugar and sugared beverages. Eat local organic when possible. Cook your own meals. Read food labels. None about healthy snacks. Portion control and food with low glycemic index 2. Exercise regularly. Try to get at least 6000 steps a day. Use a predominant to track activity level. Consider using apps like Socialcam, myfitAwesome.[email or web address], lose it, stick as needed for self-monitoring and weight management. Consider group exercises. Consider hiring a personal lines appraiser. Regular exercise is blackman to sustainable health and prevents as a buffer against weight regain 3. Sleep is most important for healing. Tried to sleep at least 8 hours a night. A good quality sleep needs a sleep ritual with ideal room temperature of around 68. It might help to take a shower and have no electronics in the room and sleep in a very dark room without artificial light. Start her sleep routine and get up early in the morning and go to bed on time 4. Make a social connection. Surround yourself with positive people with positive energy. Connect with friends and family. 5. Get into the habit of meditating and mindfulness while doing everything. 6. Go outside and connect with nature. C. Prescription medications Patient was educated on the use of prescription medications for medical weight loss. This is a growing list and includes phentermine, Topamax,Qsymia, contrave, belviq and saxenda. All prescription medications could have side effects including but not limited to kidney stones, seizure disorder cardiac arrhythmias heart attack pancreatitis etc. etc.. Patient was encouraged to read the prescription insert and have coaching with their pharmacist and make an informed decision about taking medication and know that these medications are being prescribed with good intentions and we do not know how a patient would react to her medication. Sudden medications are FDA approved for weight loss and there is also off label use depending on patient's inability to afford medications in an attempt to lose weight D. Behavioral counseling was done to establish a relationship between food and an mood. Patient was provided information about local counseling and psychiatry and Dr Blue at [facility] [employer] [facility] [employer] [facility]. We would like to cover regular topics and build on low glycemic eating exercise mindful eating, using yoga and meditation along with deep breathing and connecting with friends and family. E. MASS PAT reviewed, Patient's current medications were reviewed and opinion was given on medication that can cause weight gain and can be substituted F. Patient was assessed for risk with obesity including and not limiting to atherosclerosis heart disease stroke kidney disease, restrictive lung disease, irritable bowel syndrome and overall mortality. Risk of developing prediabetes diabetes and metabolic syndrome was discussed G. Therapeutic plan: We have decided to make therapeutic plan which would include choosing wisely on calories restricting portion getting active, tracking weight, getting good quality sleep and working on time management H. Patient will follow up in (4) weeks for weight management Of note, some information is being carried forward from prior records for informational purposes only and is being cited so that efficiency, safety and quality of the patient's care is not compromised This note was prepared using voice recognition software and direct typing Please excuse inadvertent pouch maker or typing errors, or uncorrected word substitutions Although every attempt has been made by the provider to proofread this document, occasional misspellings and typographical errors may still be present Due to the previous pandemic, and the use of personal protective equipment (PPE) This may decrease voice recognition accuracy Inadvertent pouch maker errors may occur. Plan: * Procedure Codes: 9 9199 NO SHOW OFFICE VISIT Billing Information: * Procedure Codes: 55593 NO SHOW OFFICE VISIT. * Electronic signature of NORMA DELGADO on 04/09/2025 at 07:55 AM EST Sign off status: Pending * Provider: Koki DELGADO NP Date: 0 12/21/2023 Generated for Jose Alejandro anaya/Perez/Kaitlin on: 06/09/2024 07:55 AM EST
--- OUTSIDE RECORDS SUMMARY | 2025-04-09 07:55 | XMS_ITS | Encounter Summary ---
Author Organization [employer] Address [address] [place] [address] Care Team Providers Care Professor Of Communication Arts Name Role Phone Teagan Pederson MD Primary Care Provider Reason for Visit * Reason Onset Date Comments Labs Only 03/31/2025 Encounter Details Date Type Department Care Team (Late st Contact Info) Description 03/31/2025 Telephone [facility] - [address] [phone] Estela Max MD [address] [place] [phone] Social History Tobacco Use Types Packs/Day Years Used Date Smoking Tobacco: Never Passive Smoke Exposure: Never Smokeless Tobacco: Never Alcohol Use Standard Drinks/Week Comments Not Currently 0 (1 standard drink = 0.6 oz pur e alcohol) Interpersonal Safety Answer Date Record ed Physical Abuse Unrecognized value 04/27/2024 Verbal Abuse Unrecognized value 04/27/2024 Comments No Sex and Gender Information Value Date Recorded Sex Assigned at Female 04/14/2024 12:18 PM EST Legal Sex Female 12:51 AM EDT Gender Identity Female 04/14/2024 12:18 PM EST Sexual Orientation Straight 04/14/2024 12 :18 PM EST documented as of this encounter Progress Notes * Carmita Gayle - 03/31/2025 10:50 AM EST Endocrine Call Primary endocrine provider: Dr. Max Is the endocrine provider in the office toady?: no Who is calling? The patient. If not the patient or parent/guardian please check for authorization to share/verbal release. Why is the person calling? Orders (labs or imaging). Patient wanting labs/images ordered. Please send directly to endocrine provider. Which labs/images: (previously seen with Dr. Walsh) Pt requesting thyroid lab work . documented in this encounter Plan of Treatment Upcoming Encounters Date Type Department Care Team (Late st Contact Info) Description 06/03/2025 11:00 AM EST Office Visit Endocrinology - [address] [phone] Estela Max MD [address] [place] [address] documented as of this encounter Visit Diagnoses Not on filedocumented in this encounter Care Teams Professor Of Communication Arts Relationship Specialty Start Date End Date Teagan Pederson MD [address] [place] [phone] PCP - General Internal Medicine 10/13/21 documented as of this encounter
--- OUTSIDE RECORDS SUMMARY | 2025-04-09 07:55 | XMS_ITS | Patient Health Record ---
Author Organization [facility] Address [address] [place] [address] Care Team Providers Care Night Court Magistrate Name Role Phone JR ELECT[employer]ICIAN MACHINE SHOPJAROCHO Hale Unavailable Allergies Allergen (clinical drug ingredient) Drug/Non Drug Allergy documented on EMR Reaction Allergy Type Onset Date Status aspirin Aspirin rash Drug Allergy Active Reason For Referral No Information Medications Medication SIG (Take, Route, Frequency, Duration) Notes Start Date End Date Status Insulin Pen Needle 32G X 6 MM Miscellaneous use daily with saxenda; Duration: 30 days 03/13/2023 Not-Taking Zepbound 2.5 MG/0.5ML Solution Auto-injector inject 2.5mg Subcutaneous once weekly; Duration: 30 days 11/26/2023 Active Ondansetron HCl 4 MG Tablet 1 tablet [...] Subcutaneous daily; Duration: 30 days 03/13/2023 Not-Taking Social History Tobacco Use: Social History Observation Description Date Details (start date - stop date) Never Smoker NA - NA Social History Drugs/Alcohol: Social Info Question Answer Notes Alcohol Screen (Audit-C) Did you have a drink containing alcohol in the past year? No Points 0 Interpretation Negative Tobacco Use: Social Info Question Answer Notes Tobacco Use/Smoking Are you a nonsmoker Additional Details Category Social Info Options Details Drugs/Alcohol: Do you smoke marijuana? De nies Do you drink alcohol? No Problems Problem Type SNOMED Code ICD Code Onset Dates Problem Status W/U Status Risk Notes Problem Hypothyroidism (50646575) Hypothyroidism, unspecified (E03.9) Active confirmed Problem Diabetes mellitus screening (727224374) Encounter for screening for diabetes mellitus (Z13.1) Active confirmed Problem Lipid screening (200190323) Encounter for screening for lipoid disorders (Z13.220) Active confirmed Problem Obesity (361495757) Obesity (BMI 30-39.9) (E66.9) Active confirmed Problem Body mass index 35.00 to 39.99 (779477949813125) Body mass index [BMI] 38.0-38.9, adult (Z68.38) Active confirmed Problem Obese class II (182100699242617) BMI 39.0-39.9,adult (Z68.39) Active confirmed Problem Mixed hyperlipidemia (303170504) Hyperlipemia, mixed (E78.2) Active confirmed Problem Obese class II (721962908222414) BMI 36.0-36.9,adult (Z68.36) Active confirmed Problem Screening for cardiovascular system disease (395633398) Screening for cardiovascular condition (Z13.6) Active confirmed Problem Insulin resistance (668141702) Insulin resistance (E88.81) Active confirmed Plan Of Treatment No Information Insurance Providers Payer Name Payer Address Payer Phone Subscriber Number Group Number Insured Name Patient Relationship to Insured Coverage Start Date Coverage End Date [employer] [place] [address] [address] [place] [address] [id number] Seema Epstein Self - patient is the insured Medications Administered Medication Instructions Date of Administration Dosage Notes MICC B12 INJECTION 01/31/2023 Tirzepatide 11/26/2023 2.5 mg R tricep SQ Tirzepatide 12/07/2023 2.5 mg Medical (General) History Medical History History ICD Code asthma Arthritis weight gain/loss
--- OUTSIDE RECORDS SUMMARY | 2025-04-09 07:55 | XMS_ITS | Clinical Summary ---
Author Organization Patient Business [employer] [facility] Address [address] [place] [address] Care Team Providers Care Program Rep Name Role Phone Teagan Pederson MD Primary Care Provider Allergies Active Allergy Reactions Criticality Noted Date Comments Aspirin Itching High 10/04/2016 Reports itching and swollen eyes Ibuprofen Itching Medium 06/12/2019 Nsaids (Non-Steroidal Anti-Inflammatory Drug) Itching Medium 04/20/2024 Medications cholecalciferol (VITAMIN D-3) 50 mcg (2,000 unit) tablet Take 1 Tablet by mouth daily. 4 Active nortriptyline (PAMELOR) 25 mg capsule Take 1 Capsule by mouth at bedtime. 3 Active acetaminophen (TYLENOL) 500 mg tablet Take 2 tablets (1,000 mg total) by mouth every 8 (eight) hours if needed for mild pain. Please take two tablets every 8 hours for the first few days after surgery, then as needed 60 tablet 1 4 Active docusate sodium (COLACE) 100 mg capsule Take 1 capsule (100 mg total) by mouth 2 (two) times a day. Please take one capsule twice daily after surgery 60 each 3 4 Active polyethylene glycol (PEG) 17 gram/dose oral powder Take 17 g by mouth 1 (one) time each day. Please take daily after surgery 116 g 3 4 Active oxyCODONE (ROXICODONE) 5 mg immediate release tablet Take 1 tablet (5 mg total) by mouth every 6 (six) hours if needed for severe pain. Max Daily Amount: 20 mg 5 tablet 4 Active Additional Information Patient not taking.Reported on 05/11/2024 pantoprazole (PROTONIX) 40 mg EC tablet Take 1 tablet (40 mg total) by mouth 1 (one) time each day before breakfast. Take 1 Tablet by mouth daily. Take your thyroid med first, wati 30 mins and then take the protonix, wait 30 mins and then eat to activate the medication 90 tablet 4 Active gabapentin (NEURONTIN) 300 mg capsule Take 1 capsule (300 mg total) by mouth at bedtime. TAKE ONE TABLET BY MOUTH AT NIGHT 90 capsule 4 Active albuterol HFA (PROAIR HFA ; PROVENTIL HFA ; VENTOLIN HFA) 90 mcg/actuation inhaler Inhale 2 puffs by mouth every 6 (six) hours if needed for wheezing. 6.7 g 4 Active levothyroxine (SYNTHROID, LEVOTHROID) 125 mcg tablet TAKE ONE (1) TABLET BY MOUTH EVERY DAY 90 tablet 3 5 Active Active Problems Problem Noted Date Diagnosed Date Atrophy of muscle of right hand 10/11/2022 Deformity, finger acquired, right 10/11/2022 Rosacea 10/04/2020 Carpal tunnel syndrome of right wrist 08/09/2019 Iron deficiency anemia 12/29/2018 Anemia 12/18/2018 Prediabetes 12/18/2018 Snoring 12/17/2018 Overview (02/28/2024): 11/2018 Home Sleep Study did not reveal sleep apnea or nocturnal hypoxia. Hypothyroidism 12/09/2018 Atypical squamous cell landrum es of undetermined significance (ASCUS) on cervical cytology with positive high risk human papilloma virus (HPV) 02/21/2017 Overview (02/28/2024): Pap smear 01/02/2017 ASCUS HR HPV Colpo 02/21/2017 negative for dysplasia Mild intermittent asthma without complication Encounters Date Type Department Care Team Description 03/31/2025 Telephone Endocrinology - [place] [address] [place] [address] Estela Max MD from Last 3 Months Immunizations Immunization Administration Dates Next Due Influenza Quadravalent, MDCK , 0.5ml, preservative free (Flucelvax) 6mo and older 04/06/2019 Tdap Tetanus diptheria acell ular pertussis (Boostrix; Adacel) 7yo and older 10/03/2020 Surgical History Surgery Date Site/Laterality Comments HAND SURGERY 1998 Right PROCEDURE: HISTORICAL HAND SURGERY; COMMENT: carpal tunnel- in [place] TUBAL LIGATION 2001 Bilateral PROCEDURE: HISTORICAL TUBAL LIGATION COLONOSCOPY 04/26/2021 PROCEDURE: HISTORICAL COLONOSCOPY; COMMENT: negative CARPAL TUNNEL RELEASE Bilateral Medical History Medical History Date Comments Hypothyroid 09/2016 DX:Hypothyroid; COMMENT: Levothyroxin ordred but pt stopped after 2 months because she doesn't like to take pills. Mild intermittent asthma wit hout complication 11/02/2016 DX:Mild intermittent asthma without complication Depression DX:Depression Esophageal reflux DX:Esophageal reflux Dysphagia DX:Dysphagia Arthritis Joint pain Family History Medical History Relation Name Comments Other: Other Brother diabetes Diabetes Father Other: Other Maternal Grandfather Stroke Other cancer Mother multiple Myelom a- at age of 52, RA Breast cancer Other pat aunt Diabetes Paternal Grandfather diabete s,hypertension, CAD Other: Other Sister colon polyp Relation Name Status Comments Brother Alive Father Alive Maternal Grandfather Maternal Grandmother Mother Other pat aunt Paternal Grandfather Paternal Grandmother Sister Social History Tobacco Use Types Packs/Day Years Used Date Smoking Tobacco: Never Passive Smoke Exposure: Never Smokeless Tobacco: Never Tobacco Cessation:Counseling Given: Not Answered Alcohol Use Standard Drinks/Week Comments Not Currently [...] Orientation Straight 04/14/2024 12 :18 PM EST Obstetrics History Para Term AB IAB SAB Ectopic Multiple Livin g Live Births 4 4 4 4 Date Outcome GA Total Labor Labor/2nd/3rd Weight Sex Type Anes PTL Andreina A1 A5 Name Clin Term Term Term Term Last Filed Vital Signs Vital Sign Reading Time Taken Comments Blood Pressure 135/85 06/09/2024 2:44 PM EST Pulse 61 06/09/2024 2:44 PM EST Temperature 36.3 C (97.3 F) 04/27/2024 1:07 PM EST Respiratory Rate 14 06/09/2024 2:44 PM EST Oxygen Saturation 96% 04/27/2024 1:17 PM EST Inhaled Oxygen Concentration - - Weight 95.3 kg (210 lb) 06/09/2024 2:44 PM EST Height 157.5 cm (5' 2 ) 06/09/2024 2:44 PM EST Body Mass Index 38.41 06/09/2024 2:44 PM EST Plan of Treatment Upcoming Encounters Date Type Department Care Team (Late st Contact Info) Description 06/03/2025 11:00 AM EST Office Visit Endocrinology - [address] [phone] Estela Max MD [address] [place] [id number] Health Maintenance Due Date Last Done Comments Pneumococcal Vaccine: 50+ Years (2 of 2 - PCV) 03/17/2008 03/17/2007 Hepatitis B Vaccines (2 of 3 - 19+ 3-dose series) 09/16/2009 08/19/2009 Social Influencers of Health Screening 08/04/2020 RSV Immunization Adult Patients (1 - Risk 50-74 years 1-dose series) 2023 Zoster Vaccines (1 of 2) 2023 Depression Screening 05/20/2024 COVID-19 Vaccine (3 - 2024- season) 2025 07/21/2020, 06/30/2020 Influenza Vaccine (#1) 2025 9, 06/03/2013, 04/24/2012, Additional history exists Breast Cancer Screening 11/23/2026 11/24/19 25, 11/19/2023, 11/19/2023, Additional history exists Cholesterol Screening (Lipid Panel) 03/11/2028 03/11/2023 Cervical Cancer Screening: HPV 11/27/2028 11/28/2023 DTaP,Tdap,and Td Vaccines (3 - Td or Tdap) 10/03/2030 10/03/2020, 08/12/2006 Colorectal Cancer Screening: Colonoscopy 04/29/2031 04/26/2021 HIV Screening Completed 12/09/2018 Hepatitis C Screening Completed 12/09/2018 HIB Vaccines Aged Out No longer eligi ble based on patient's age to complete this topic HPV Vaccines Aged Out No longer eligi ble based on patient's age to complete this topic Hepatitis A Vaccines Aged Out No long er eligible based on patient's age to complete this topic IPV Vaccines Aged Out No longer eligi ble based on patient's age to complete this topic MMR Vaccines Aged Out No longer eligi ble based on patient's age to complete this topic Meningococcal ACWY Vaccine Aged Out N o longer eligible based on patient's age to complete this topic Meningococcal B Vaccine Aged Out No l onger eligible based on patient's age to complete this topic RSV Immunization Patients Under 20 months Aged Out No longer eligible based on patient's age to complete this topic Varicella Vaccines Aged Out No longer eligible based on patient's age to complete this topic Medical Devices Implanted Type Area Combat Systems Operator Device Identifier Shelf Expiration Date Model / Serial / Lot Sling Surg Adv Fit Ultra - Sn/A - [id number] Implanted:Qty: 1 on 04/27/2024 by Clarice Bach MD at [facility] Sling Implants N/A: Vagina [employer] AARON [id number] 01/12/2027 [id number] 160 / N/A / [id number] Procedures Procedure Name Priority Date/Time Associated Diagnosis Comments MG MAMMO DIGITAL SCREENING W RUPERTO BILAT Routine 11/23/2024 2:16 PM EDT Encounter for screening mammogram for breast cancer HPV Routine 11/28/2023 LIPID PANEL Routine 03/11/2023 COLONOSCOPY Routine 04/26/2021 HEPATITIS C SCREENING Routine 12/09/2018 HIV SCREENING Routine 12/09/2018 from Last 3 Months or Most Recently Relevant to Health Maintenance Results * MG Mammo Digital Screening w Ruperto bilat (11/23/2024 2:16 PM EDT) Anatomical Region Laterality Modality Breast Bilateral Mammography 11/25/2024 8:39 AM EDT Impressions 11/25/2024 8:41 AM EDT No mammographic evidence for malignancy. BI-RADS CATEGORY: 1 - NEGATIVE RECOMMENDATION: Screening bilateral mammogram is recommended in 1 year. Mammo Location: [facility], [address] [place] [address], [id number], . -------- FINAL REPORT -------- Dictated By: Bisi Bañuelos Dictated Date: 11/25/2024 08:39 ET Assigned Physician: Bisi Bañuelos Reviewed and Electronically Signed By: Bisi Bañuelos Signed Date: 11/25/2024 08:41 ET Workstation ID: [id number] Transcribed By: Self Edit Transcribed Date: 11/25/2024 08:39 ET Narrative 11/25/2024 8:41 AM EDT Bilateral screening mammogram. CLINICAL: 49 years old, Female, routine annual exam. COMPARISON: Prior studies, latest from 11/19/2023. TECHNIQUE: Bilateral MLO and CC views were obtained digitally with 2-D C views and 3-D mammogram (digital breast tomosynthesis). Computer-aided detection was utilized in evaluation of this exam (CAD). FINDINGS: There is no evidence of suspicious mass or architectural distortion. No worrisome calcifications are evident. There has been no significant change from prior exam(s). BREAST DENSITY: B - There are scattered areas of fibroglandular density. Procedure Note Bisi Bañuelos MD - 11/25/2024 Bilateral screening mammogram. CLINICAL: 49 years old, Female, routine annual exam. COMPARISON: Prior studies, latest from 11/19/2023. TECHNIQUE: Bilateral MLO and CC views were obtained digitally with 2-D Cviews and 3-D mammogram (digital breast tomosynthesis). Computer-aideddetection was utilized in evaluation of this exam (CAD). FINDINGS: There is no evidence of suspicious mass or architectural distortion. Noworrisome calcifications are evident. There has been no significantchange from prior exam(s). BREAST DENSITY: B - There are scattered areas of fibroglandular density. IMPRESSION: No mammographic evidence for malignancy. BI-RADS CATEGORY: 1 - NEGATIVE RECOMMENDATION: Screening bilateral mammogram is recommended in 1 year. Mammo Location: [facility], [address] [place] [address], [id number], . -------- FINAL REPORT -------- Dictated By: Bisi Bañuelos Dictated Date: 11/25/2024 08:39 ET Assigned Physician: Bisi Bañuelos Reviewed and Electronically Signed By: Bisi Bañuelos Signed Date: 11/25/2024 08:41 ET Workstation ID: [id number] Transcribed By: Self Edit Transcribed Date: 11/25/2024 08:39 ET Teagan Pederson MD IMG BI PROCEDURES Ellen l Result * Cervical Cancer Screening: HPV (11/28/2023) Pathologist [facility] Cervical Cancer Screening: HPV No interpreta tion,abstr acted Historical Provider HEALTH MAINTENANCE Final Result * (ABNORMAL) Lipid panel (03/11/2023) LDL/HDL Ratio 5(A) 0 - 4 Triglycerides 114 0 - 150 mg/dL Cholesterol 230(A) 0 - 200 mg/dL HDL 45 >=40 mg/dL LDL Cholesterol 163(A) 0 - 100 mg/dL Blood Venous blood specimen / Unknown Historical Provider LAB BLOOD ORDERABLES Ellen l Result * Colonoscopy (04/26/2021) Colonoscopy No interpreta tion,abstr acted Anatomical Region Laterality Modality Other Historical Provider HEALTH MAINTENANCE Final Result * HIV Screening (12/09/2018) Pathologist [facility] HIV Screening Abstracted Historical Provider HEALTH MAINTENANCE Final Result * Hepatitis C Screening (12/09/2018) Pathologist [facility] Hepatitis C Screening Abstracted Historical Provider HEALTH MAINTENANCE Final Result from Last 3 Months or Most Recently Relevant to Health Maintenance Insurance [facility] Advance Directives * Full Code - Default (Latest Code Status on File) Date Activated Date Inactivated Comments 04/27/2024 7:21 AM 04/27/2024 7:06 PM This is orde r is used when code status has not been discussed with the patient, or code status is otherwise unknown/unconfirmed To update the patient's code status, place a code status order. Do not modify or discontinue any currently active code status orders. Care Teams Program Rep Relationship Specialty Start Date End Date Teagan Pederson MD [address] [place] [phone] PCP - General Internal Medicine 10/13/21
--- NOTE | 2025-04-09 11:17 | MHC.OFFVISWM ---
VS Expanded 04/09/25 11:26 Height 5 ft 2 in Weight 222 lb 4 oz BMI 40.6 Body Fat % 48.9 Body Fat Mass 108.6 Fat Free Mass 113.6 Visceral Fat Rating 15 Body Water % 36.4 Body Water Mass 81 Basal Metabolic Rate/Score 1,619 Intake Visit Reasons: [employer]VERT[employer]FFIC [employer]GER SWL/MWL BMI 40.7 Allergies aspirin Adverse Reaction (Severe, Verified 04/09/25 11:17) Rash Medication List - Last Reconciled 04/09/25 by Gianni Lyles MD albuterol sulfate 90 mcg/actuation 2 puffs inhalation Q6H PRN cholecalciferol (vitamin D3) 50 mcg PO DAILY gabapentin mg PO BEDTIME levothyroxine 125 mcg PO DAILY nortriptyline 25 mg PO BEDTIME pantoprazole 40 mg PO DAILY HPI 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: Details: Start time: 11.04am, End time: 11.49am ?I spent 40 minutes speaking with the patient on the phone plus an additional 5 minutes reviewing and updating records for a total of 45 minutes HPI Comments Details: Previous weight loss efforts: Weight loss clinic, [facility] diet Wakes up: 7am, Sleeps: 10pm Breakfast: skips Lunch: 12-2pm ([place] [employer] chicken, sandwich) Dinner: 7pm (rice, chicken, beans) Snacks: 10am (bread or crackers), 4pm (guacamole with cheese), 9pm (sandwich) Exercise: none Beverages: Coffee: (2 cups/d with cream), Tea: rarely, Soda: Coke zero x3/wk, Juice: none, ETOH: none PFSH Medical History (Updated 04/09/25 @ 11:22 by Gianni Lyles MD) GERD (gastroesophageal reflux disease) Hyperlipidemia Morbid obesity Carpal tunnel syndrome Rosacea Asthma Arthritis Hypothyroidism Surgical History (Updated 02/26/25 @ 08:35 by JAMES Reyez) H/O tubal ligation Status post creation of urethral sling by suprapubic approach Family History (Updated 02/26/25 @ 08:40 by JAMES Reyez) Mother Multiple myeloma Father Diabetes Hypertension Polyp of stomach Social History (Updated 02/26/25 @ 08:41 by Tabitha Colon, RMA) Household Members: Children Housing: House Alcohol intake: never Patient Tobacco Use Status: Never used Tobacco Telehealth Telehealth Telehealth Platform: Telephone Location of provider rendering services: practice address Location of patient: address on file Patient Identification confirmed using: Name, : Yes Telehealth method: voice only Patient verbally consented to treatment: Yes Patient verbally consented to billing insurance company: Yes Patient informed of any privacy concerns related to visit: Yes Minutes spent on Phone/Video with Pt.: 45 Assessment & Plan Assessment & Plan (1) Morbid obesity: Code(s): E66.01 - Morbid (severe) obesity due to excess calories Category: Medical Plan: 1.? Plan for lap sleeve gastrectomy. If diaphragmatic or ventral hernias are present at time of surgery, these will be repaired laparoscopically as well. I emphasized the importance of close follow-up, adherence to instructions and good communication. The surgery does not replace the need to change your lifestlyle which is the cause of the obesity problem. The surgery provides the motivation to try again to change your lifestyle, it reduces the appetite and make the transition to a better lifestyle easier and doubles the amount of weight you would lose compared to doing the lifestyle change without the surgery. You will need to be on a liquid diet with protein shakes for 2 weeks before surgery to maximize weight loss and boost your nutritional status to recover better from surgery and also for the first two weeks after surgery to let the stomach heal before we introduce other foods. After the first 2 weeks we will introduce protein bars and soft foods like scrambled eggs, cottage cheese and yogurt and after the 6th week will introduce meat, fish and cooked vegetables in small amounts. Over time you should be able to eat everything in small amounts. Side effects like nausea, vomiting, heartburn or abdominal pain are not common in the practice unless you are not following in the practice. This operation requires lifetime commitment to following in our practice and communication with me. You will much less weight and experience side effects if you don?t communicate or not following in the practice. Complications are rare and in our practice is about 1/10 of the national average. However, you can develop bleeding that may require transfusion (hasn?t happened for year in the practice), you may from complications (we did not have any deaths in the practice) and infections. Infections are usually a result of breakdown in communication or not understanding or following directions correctly. They are difficult to treat, they can happen during the first 6 weeks, they may require to be in the hospital for weeks or even months, not being able to eat by mouth and you may have drains and surgeries to try and correct the issue. Other risks and complications include possible conversion to an open procedure, leaks, small bowel obstruction, blood clots, cardiac, or pulmonary complications, as petroleum terminal plant operator complications such as ulcers, insufficient weight loss and vitamin deficiencies. 2. Nutritional counseling. Start with one premade PREMIER protein (buy at [employer] or [employer]) shake (mix 4oz of Premier mixed with 4oz low fat unsweetened almond milk each) at 8am-10am, one protein bar (Fit Crunch protein bar, buy at [employer], or [employer]) at 11am-1pm, another premade PREMIER protein shake (mix 4oz of Premier mixed with 4oz low fat unsweetened almond milk each) at 2pm-4pm, dinner at 5pm (8 forks of protein and 8 forks of salad/vegetables) and another [employer] protein bar 7pm-9pm. So you do 2 protein shakes, 2 protein bars and one meal per day. Meal to include lean meat (beef, fish, pork, turkey, chicken), or croatian yogurt, or egg whites, or beans with a salad with olive oil and fruits (berries, pears, apples, kiwi). Avoid salt, breads, potatoes, rice, pasta, desserts. 3. Each shake would be drunk slowly, like coffee in a period of 2 hours. 4. Cut each bar in 4 pieces and eat each piece in 30min ?to make each bar last 2 hours. 5. I emphasized the importance of measuring accurately the food portion and measure it when serving the food in plate 6. The meal portions include 8 full-size forks of meat and 8 full-size forks of salad. You always eat the meat portion but you can replace up to 4 forks for salad/vegetables with rice, potatoes or pasta, or a fruit ?if you like. The less you do it the better weight loss will be. 7. One full-size fork is what it can be scooped on the fork without falling aside and not what can be bit with the fork. Use regular forks like those you find in a typical restaurant. 8.? Please buy the body composition scale we discussed and send me weight measurements as soon as possible and then once a week. Always include your diet and exercise plan. 9. Start stationary bike at the Gym at a resistance level of 4.0 Increase level by 1.0 every 3 min to a max level of 10.0. Stay at this level for 3 min and then return to level 4.0 and repeat same steps until 300 calories are burned. Goal is to burn 2000 calories per week on exercise 10. The best choice would be to purchase a stationary bike at home that can track calories. Let me know if you do so I can give you an exercise plan. 11.?It is important of avoiding and for at least 18 months postoperatively and has been discussed at the infosession. 12. Goal is to lose at least 1.5-2lbs per week 13. Goal to lose 10% of your weight before surgery, which is about 22lbs. Ultimate weight goal: 200lbs before surgery 14. Please follow the diet plan exactly without any change. If you don't like something about the plan or you feel hungry you need to communicate with me so I can help you revise the plan. You should not change the plan yourself 15. To be scheduled for EGD to assess the stomach's anatomy. The possibility of biopsies was discussed. Patient needs to avoid use of NSAIDs and aspirin for 1 week prior to EGD. You must be on liquids only the day before your endoscopy. Risks of perforation and bleeding was discussed with the patient. This will be an outpatient procedure with IV sedation. Orders: Orders Insulin Today E03.9 - Hypothyroidism, unspecified, E66.01 - Morbid (severe) obesity due to excess calories, E78.5 - Hyperlipidemia, unspecified, J45.909 - Unspecified asthma, uncomplicated, K21.9 - Gastro-esophageal reflux disease without esophagitis Hemoglobin A1c Today E03.9 - Hypothyroidism, unspecified, E66.01 - Morbid (severe) obesity due to excess calories, E78.5 - Hyperlipidemia, unspecified, J45.909 - Unspecified asthma, uncomplicated, K21.9 - Gastro-esophageal reflux disease without esophagitis H Pylori Breath Test Today E03.9 - Hypothyroidism, unspecified, E66.01 - Morbid (severe) obesity due to excess calories, E78.5 - Hyperlipidemia, unspecified, J45.909 - Unspecified asthma, uncomplicated, K21.9 - Gastro-esophageal reflux disease without esophagitis Complete Blood Count Auto Diff Today E03.9 - Hypothyroidism, unspecified, E66.01 - Morbid (severe) obesity due to excess calories, E78.5 - Hyperlipidemia, unspecified, J45.909 - Unspecified asthma, uncomplicated, K21.9 - Gastro-esophageal reflux disease without esophagitis IRON PROFILE Today E03.9 - Hypothyroidism, unspecified, E66.01 - Morbid (severe) obesity due to excess calories, E78.5 - Hyperlipidemia, unspecified, J45.909 - Unspecified asthma, uncomplicated, K21.9 - Gastro-esophageal reflux disease without esophagitis C Reactive Protein Today E03.9 - Hypothyroidism, unspecified, E66.01 - Morbid (severe) obesity due to excess calories, E78.5 - Hyperlipidemia, unspecified, J45.909 - Unspecified asthma, uncomplicated, K21.9 - Gastro-esophageal reflux disease without esophagitis TSH reflex Free T4 Today E03.9 - Hypothyroidism, unspecified, E66.01 - Morbid (severe) obesity due to excess calories, E78.5 - Hyperlipidemia, unspecified, J45.909 - Unspecified asthma, uncomplicated, K21.9 - Gastro-esophageal reflux disease without esophagitis Ferritin Today E03.9 - Hypothyroidism, unspecified, E66.01 - Morbid (severe) obesity due to excess calories, E78.5 - Hyperlipidemia, unspecified, J45.909 - Unspecified asthma, uncomplicated, K21.9 - Gastro-esophageal reflux disease without esophagitis Vitamin D 25-OH Total Today E03.9 - Hypothyroidism, unspecified, E66.01 - Morbid (severe) obesity due to excess calories, E78.5 - Hyperlipidemia, unspecified, J45.909 - Unspecified asthma, uncomplicated, K21.9 - Gastro-esophageal reflux disease without esophagitis XR chest 2V Today E03.9 - Hypothyroidism, unspecified, E66.01 - Morbid (severe) obesity due to excess calories, E78.5 - Hyperlipidemia, unspecified, J45.909 - Unspecified asthma, uncomplicated, K21.9 - Gastro-esophageal reflux disease without esophagitis ECG 12 lead EKG Today E03.9 - Hypothyroidism, unspecified, E66.01 - Morbid (severe) obesity due to excess calories, E78.5 - Hyperlipidemia, unspecified, J45.909 - Unspecified asthma, uncomplicated, K21.9 - Gastro-esophageal reflux disease without esophagitis FL upper GI w air Today E03.9 - Hypothyroidism, unspecified, E66.01 - Morbid (severe) obesity due to excess calories, E78.5 - Hyperlipidemia, unspecified, J45.909 - Unspecified asthma, uncomplicated, K21.9 - Gastro-esophageal reflux disease without esophagitis Lipid Panel Today E03.9 - Hypothyroidism, unspecified, E66.01 - Morbid (severe) obesity due to excess calories, E78.5 - Hyperlipidemia, unspecified, J45.909 - Unspecified asthma, uncomplicated, K21.9 - Gastro-esophageal reflux disease without esophagitis Comprehensive Met. Panel Today E03.9 - Hypothyroidism, unspecified, E66.01 - Morbid (severe) obesity due to excess calories, E78.5 - Hyperlipidemia, unspecified, J45.909 - Unspecified asthma, uncomplicated, K21.9 - Gastro-esophageal reflux disease without esophagitis Vitamin B12 and Folate Today E03.9 - Hypothyroidism, unspecified, E66.01 - Morbid (severe) obesity due to excess calories, E78.5 - Hyperlipidemia, unspecified, J45.909 - Unspecified asthma, uncomplicated, K21.9 - Gastro-esophageal reflux disease without esophagitis Zinc Today E03.9 - Hypothyroidism, unspecified, E66.01 - Morbid (severe) obesity due to excess calories, E78.5 - Hyperlipidemia, unspecified, J45.909 - Unspecified asthma, uncomplicated, K21.9 - Gastro-esophageal reflux disease without esophagitis Vitamin B1 Today E03.9 - Hypothyroidism, unspecified, E66.01 - Morbid (severe) obesity due to excess calories, E78.5 - Hyperlipidemia, unspecified, J45.909 - Unspecified asthma, uncomplicated, K21.9 - Gastro-esophageal reflux disease without esophagitis Vitamin A Today E03.9 - Hypothyroidism, unspecified, E66.01 - Morbid (severe) obesity due to excess calories, E78.5 - Hyperlipidemia, unspecified, J45.909 - Unspecified asthma, uncomplicated, K21.9 - Gastro-esophageal reflux disease without esophagitis US abdomen comp w elastography Today E03.9 - Hypothyroidism, unspecified, E66.01 - Morbid (severe) obesity due to excess calories, E78.5 - Hyperlipidemia, unspecified, J45.909 - Unspecified asthma, uncomplicated, K21.9 - Gastro-esophageal reflux disease without esophagitis Referrals Behavioral Health Referral E03.9 - Hypothyroidism, unspecified, E66.01 - Morbid (severe) obesity due to excess calories, E78.5 - Hyperlipidemia, unspecified, J45.909 - Unspecified asthma, uncomplicated, K21.9 - Gastro-esophageal reflux disease without esophagitis Nutrition/Dietitian Referral E03.9 - Hypothyroidism, unspecified, E66.01 - Morbid (severe) obesity due to excess calories, E78.5 - Hyperlipidemia, unspecified, J45.909 - Unspecified asthma, uncomplicated, K21.9 - Gastro-esophageal reflux disease without esophagitis
[2025-04-09 11:26] VITALS: BMI 40.6
== END 2025-04-09 11:50 | disposition home or self-care (01) ==
LOC: HO.HBS 07:53
PROVIDERS: Visit Provider Surgery
DX: E66.01 Morbid (severe) obesity due to excess calories (principal)
CPT/HCPCS: 99204